=== PATIENT | female | born 1980 ===

== ENCOUNTER 2021-10-19 07:30 | Inpatient (IN) | payer OTHER ==
[~2021-10-19] VITALS: Ht 172.7 cm; Wt 117.9 kg
[2021-10-19] MEDS ORDERED: COZAAR25 MG PO (09:43)
== END 2021-10-22 13:24 | disposition home or self-care (01) | DRG 658 ==
LOC: O/R 10-21 07:11 → OB/GYN 10-21 07:30 → EDBD 10-21 07:30 → OB/GYN 10-21 14:15
PROVIDERS: ADMIT Obstetrics & Gynecology Gynecologic Oncology; ATTEND Obstetrics & Gynecology Gynecologic Oncology
PROC: 0UT94ZZ Resection of Uterus, Percutaneous Endoscopic Approach (ICD-10-PCS; 2021-10-21)
PROC: 0UT74ZZ Resection of Bilateral Fallopian Tubes, Percutaneous Endoscopic Approach (ICD-10-PCS; 2021-10-21)
PROC: 0UT24ZZ Resection of Bilateral Ovaries, Percutaneous Endoscopic Approach (ICD-10-PCS; 2021-10-21)
PROC: 07TC4ZZ Resection of Pelvis Lymphatic, Percutaneous Endoscopic Approach (ICD-10-PCS; principal; 2021-10-21 14:15)
DX: D49.59 Neoplasm of unspecified behavior of other genitourinary organ (principal); Z20.822 Contact with and (suspected) exposure to COVID-19